=== PATIENT | female | born 1980 | race Caucasian/White ===

== ENCOUNTER 2024-03-24 12:11 | Emergency (ER) | payer SELFPAY ==
[2024-03-24 12:14] VITALS: BP 123/73
[2024-03-24 12:15] VITALS: BP 123/73
[2024-03-24 12:42] LABS: % Basophils 0.5 % (0-2); % Eosinophils 0.4 % (0-6); % Immature Granulocytes 0.4 % (0-0.5); % Lymphocytes 17.4 % (20.5-51.1); % Monocytes 9.6 % (1.7-9.3); % Neutrophils 71.7 % (42.2-75.2); Absolute Basophils 0.1 10^3/uL (0-0.2); Absolute Lymphocytes 1.7 10^3/uL (1.2-3.4); Absolute Monocytes 0.9 10^3/uL (0.1-0.6); Absolute Neutrophils 6.9 10^3/uL (1.4-6.5); Hematocrit 34.7 % (37.0-47.0); Hemoglobin 11.6 g/dL (12.0-16.0); Mean Corp Hgb Conc. 33.4 g/dL (33.0-37.0); Mean Corpuscular Hgb 28.6 pg (27.0-31.0); Mean Corpuscular Volume 85.7 fL (81.0-99.0); Mean Platelet Volume 10.4 fL (7.4-10.4); Nucleated Red Blood Cells % 0 %; Platelet Count 377 10^3/uL (130-400); Red Blood Cell Count 4.05 10^6/uL (4.20-5.40); Red Cell Dist. Width 13.7 % (11.5-14.5); White Blood Cell Count 9.6 10^3/uL (4.8-10.8)
[2024-03-24 12:48] LABS: HCG, Serum Qualitative Screen Negative
[2024-03-24 12:50] LABS: ALT (SGPT) 24 U/L (0-35); AST (SGOT) 47 U/L (14-36); Albumin 4.2 g/dl (3.5-5.0); Alkaline Phosphatase 79 U/L (38-126); Blood Urea Nitrogen 18 mg/dl (7-17); Calcium 9.4 mg/dl (8.4-10.2); Carbon Dioxide 27 mmol/L (22-30); Chloride 107 mmol/L (98-107); Estimated Creatinine Clearance 109 ml/min; Glucose 97 mg/dl (70-99); Potassium 4.1 mmol/L (3.5-5.1); Sodium 138 mmol/L (135-145); eGFR > 60.00
--- NOTE | 2024-03-24 12:51 | ED.GENMED ---
History of Present Illness
General
Chief Complaint: Withdrawal Symptoms
Time Seen by Provider: 03/24/24 12:32
Travel History
Have you had any contact with someone who has COVID-19?: No
Do you have any symptoms of coronavirus? Fever > 100 degrees, chills, cough, shortness of breath, sore throat, loss of taste or smell, muscle aches, or headache?: No
History of Present Illness
History of Present Illness:
43yoF hx anxiety, depression, substance abuse, left femur fracture s/p surgery presenting from [facility] for medical evaluation. Patient denies taking any drugs or drinking alcohol. Patient states she does not know why she has diffuse
bruising/scabs. Patient denies any chest pain, shortness of breath, cough, fever, abdominal pain, or urinary symptoms. Patient denies any left hip pain. Patient states she had left femur repair at [facility] over 1 year ago, and that she was advised
to follow up with [facility] due to complications. Patient states she has an appointment next month.
Past History
Past History
ED Past Surgical History: Orthopedic (left femur)
Social History
Drug: Other
Phy Exam
Physical Exam
Physical Exam:
General: Alert, no acute distress
Head: NCAT
Eyes: clear conjunctiva
Neck: supple
Cardiac: regular rate and rhythm, no murmur
Lungs: clear to auscultation bilaterally. No wheezes, rales, or rhonchi. Speaking full unlabored sentences. No respiratory distress.
Abdomen: soft, nondistended nontender. No rebound or guarding.
MSK: no lower extremity edema bilaterally. deformity to left lateral hip with no tenderness to palpation. no overlying erythema. FROM bilateral hips and knees. 2+ DP pulses bilaterally
Skin: warm, dry. no diaphoretic. diffuse ecchymosis on bilateral upper and lower extremities. multiple healing scabs to bilateral upper and lower extremities. no surrounding erythema, fluctuance, or induration. no overlying tenderness to palpation
Neuro: Alert and oriented x3. no focal deficits. restless in stretcher, answers questions appropriately
Course
Orders/Labs/Results
Orders:
Orders
03/24/24 12:23
Hip, Left 2-3 Views [CR Hip - LT w/wo Pel 2-3 Vw*] Urgent
Comment:
Reason For Exam: pain, possible deformity
Include a pelvis x-ray?: Yes
03/24/24 12:25
Test Result ONCE
03/24/24 12:27
Complete Blood Count/With Diff Urgent
Comprehensive Metabolic Panel Urgent
HCG, Serum Qualitative Screen Urgent
Abnormal Lab Results
03/24/24
12:27
RBC 4.05 L 10^6/uL
(4.20-5.40)
Hgb 11.6 L g/dL
(12.0-16.0)
Hct 34.7 L %
(37.0-47.0)
Absolute Neuts (auto) 6.9 H 10^3/uL
(1.4-6.5)
Absolute Monos (auto) 0.9 H 10^3/uL
(0.1-0.6)
Lymphocytes % 17.4 L %
(20.5-51.1)
Monocytes % 9.6 H %
(1.7-9.3)
BUN 18 H mg/dl
(7-17)
AST 47 H U/L
(14-36)
03/24/24 12:27
03/24/24 12:27
Vital Signs
Initial and Last Documented VS:
Initial Vital Signs
Pulse Resp BP Pulse Ox
107 18 123/73 98
03/24/24 12:14 03/24/24 12:14 03/24/24 12:14 03/24/24 12:14
Last Documented Vital Signs
Pulse Resp BP Pulse Ox
99 27 123/73 98
03/24/24 14:32 03/24/24 14:15 03/24/24 12:15 03/24/24 12:14
Comment
Comment:
Patient presents to the Emergency Department with medical evaluation
Number and Complexity of Problems Addressed at the Encounter
� Chronic conditions affecting care: substance abuse
� Acute Exacerbation and/or Progression of Chronic Illness:
� Differential Diagnosis includes: intoxication, electrolyte abnormality, substance abuse
Amount and/or Complexity of Data to be Reviewed and Analyzed
� I performed an independent evaluation of and my interpretation is:
EKG:
CT:
Xrays: xray left hip displaced screw, no acute fracture
Laboratory Studies:
Other:
� Review of other/old records reveals:
� Clinical information was obtained by an independent historian:
� Prescriptions/Medications Considered but not given:
� Further testing considered but not performed:
Risk of Complications and/or Morbidity or Mortality of Patient Management
� Social Determinants of health affecting care:
� Discussion with other providers (PCP, Hospitalists, Consultants, etc):
� Escalation of care including admission/observation vs risk of discharge considered: 43yoF hx substance abuse presenting for medical evaluation. Patient denies any complaints at this time. Labs unremarkable. Xray left hip shows malpositioned screw.
Patient has full range of motion left hip, no overlying erythema, no tenderness to palpation. Patient states she has an appointment with [facility] in 1 month for post surgical complication follow up. Suspect drug intoxication as patient is
restless in bed, mildly tachycardic initially. Does not appear to be withdrawaling as she is not diaphoretic, no vomiting, not hypertensive. Vitals stable. Discharge to police custody
*Critical Care Note
Total Time (30-74mins, 75-104mins- exclusive of procedures): Not Applicable
ED Attending Note
-
Portions of this chart may have been created with voice recognition software.� Occasional wrong word or��sound alike� substitutions may have occurred due to the inherent limitations of voice recognition software.
Discharge Plan
Departure
Patient Disposition: Home (Routine Discharge)
Date of Disposition: 03/24/24
Time of Disposition: 14:19
Patient with high blood pressure during this ER visit?: No
Discharge Problem:
Loosening of orthopedic screw
Activity Restrictions/Additional Instructions:
Follow-up with orthopedics as scheduled
Return to the emergency department for fever or new/worsening symptoms
Medically cleared for incarceration
Interventions
Interventions:
*Risk Screen - Suicide Last Done: 03/24/24 12:14
*General Assessment Last Done: 03/24/24 12:14
*Neglect/Abuse Screening Last Done: 03/24/24 12:14
ED- Fall Risk Assessment Last Done: 03/24/24 12:14
*ED COVID-19 Vaccine History Last Done: 03/24/24 12:14
*Nursing Disposition Last Done: 03/24/24 14:52
ED- Neurological Assessment Last Done: 03/24/24 12:14
ED-Psychological Assessment Last Done: 03/24/24 12:14
Discharge Date and Time
Print Language: MONGOLIAN
== END 2024-03-24 14:52 | disposition home or self-care (01) ==
LOC: EMR 12:11
PROVIDERS: Emergency Medicine; EMERGENCY PHYSICIAN Emergency Medicine
DX: M25.552 Pain in left hip (principal); T84.031A Mechanical loosening of internal left hip prosthetic joint, initial encounter; Y83.9 Surgical procedure, unspecified as the cause of abnormal reaction of the patient, or of later complication, without mention of misadventure at the time of the procedure
CPT/HCPCS: 99284; 73502; 80053; 84703; 85025